=== PATIENT | female | born 1960 ===

== ENCOUNTER 2019-02-01 07:24 | Day surgery (SDC) | payer OTHER ==
[~2019-02-01 07:24] MED LIST: DILTIAZEM 24HR180 MG PO; HORIZANT300 MG PO; IRBESARTAN150 MG PO; LASIX20 MG PO; PRAVASTATIN SOD10 MG PO; SYNTHROID88 MCG PO; TRAJENTA PO; ZYLOPRIM100 MG PO
== END 2019-02-01 16:50 | disposition home or self-care (01) ==
LOC: CIR.AMB 07:24 → ADM 11:15 → CIR.AMB 11:15 → ADM 17:45
DX: S63.591A Other specified sprain of right wrist, initial encounter (principal)